=== PATIENT | female | born 1955 | race Caucasian/White ===

== ENCOUNTER 2016-08-11 21:29 | Emergency (ER) | payer MEDICAID ==
[2016-08-11] MEDS ORDERED: Ondansetron 4 MG/2 ML SDV IVPUSH ONE (22:06)
[2016-08-11] MEDS ORDERED: Sodium Chloride 0.9% 1,000 ML IV SCH ×2 (22:15→23:45)
--- NOTE | 2016-08-11 22:19 | EDM.PDOC ---
ED HPI GI/ABDOMINAL - General Chief Complaint: Gastrointestinal Problem Stated Complaint: vomiting Time Seen by Provider: 08/11/16 22:15 Source: Reports: Patient, Family History Limitations: Reports: No limitations - History of Present Illness INITIAL COMMENTS - FREE TEXT/NARRATIVE: pt fixed some artichoke dip last nit with madina that had bee in the refrigerator for a fair length of time. She ate a few chips with the dip and quit. She thought something tasted strange. She did not feel well last nite and she woke up being sweaty and she started vomiting and she has vomited all day. She is feeling very shakey. She does not have severe abdomanal pain. 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 bowel resection Female Surgical History: Reports: Cystectomy Social & Family History - Family History Family Medical History: Unobtainable - Tobacco Use Smoking Status *Q: Light Tobacco Smoker Years of Tobacco use: 26 Packs/Tins Daily: 0.4 - Caffeine Use Caffeine Use: Reports: Coffee - Alcohol Use Days Per Week of Alcohol Use: 3 Number of Drinks Per Day: 3 Total Drinks Per Week: 9 - Recreational Drug Use Recreational Drug Use: No ED ROS GENERAL - Review of Systems Review Of Systems: See Below Constitutional: Reports: diaphoresis, decreased appetite HEENT: Reports: No symptoms Respiratory: Reports: No Symptoms Cardiovascular: Reports: No symptoms Endocrine: Reports: no symptoms GI/Abdominal: Reports: Nausea, Vomiting, Other ( started after eating some dip. ) : Reports: no symptoms Musculoskeletal: Reports: no symptoms Skin: Reports: no symptoms Neurological: Reports: No Symptoms ED EXAM, GI/ABD - Physical Exam Exam: See Below Text/Narrative:: Pt developed marked vomiting after becoming ill after eating some dip. She is having some rt upper abdomanal pain. Pt is very shaky on arrival. Exam Limited By: No limitations General Appearance: alert, anxious, moderate distress Ears: normal TMs Nose: normal inspection Throat/Mouth: Normal inspection Head: atraumatic Neck: normal inspection Respiratory/Chest: no respiratory distress Cardiovascular: regular rate, rhythm, tachycardia GI/Abdominal: other (mild tenderness in the rt upper abdoman. Pt has a colostomy which has had less dtrainage throughout the day. ) Course - Vital Signs Last Recorded V/S: Last Vital Signs Temp 36.7 C 08/11/16 23:45 Pulse 88 08/11/16 23:45 Resp 14 08/11/16 23:45 BP 124/76 08/11/16 23:45 Pulse Ox 99 08/11/16 23:45 - Orders/Labs/Meds Orders: Active Orders 24 hr Category Date Time Status Abdomen Ltd [US] Stat Exams 08/12/16 00:12 Taken Sodium Chloride 0.9% [Normal Saline] 1,000 ml Med 08/11/16 22:15 Active IV ASDIRECTED Sodium Chloride 0.9% [Normal Saline] 1,000 ml Med 08/11/16 23:45 Active IV ASDIRECTED Medication Orders Sodium Chloride (Normal Saline) 1,000 mls @ 999 mls/hr IV ASDIRECTED [place] Last Admin: 08/11/16 22:10 Dose: 999 mls/hr Sodium Chloride (Normal Saline) 1,000 mls @ 999 mls/hr IV ASDIRECTED [place] Last Admin: 08/11/16 23:38 Dose: 999 mls/hr Labs: Laboratory Tests 08/11/16 08/11/16 08/11/16 Range/Units 22:06 22:06 23:19 WBC 10.5 (4.5-11.0) K/uL RBC 3.84 (3.30-5.50) M/uL Hgb 13.4 (12.0-15.0) g/dL Hct 39.3 (36.0-48.0) % MCV 102 H (80-98) fL MCH 35 H (27-31) pg MCHC 34 (32-36) % Plt Count 234 (150-400) K/uL Neut % (Auto) 77 H (36-66) % Lymph % (Auto) 12 L (24-44) % [place] % (Auto) 11 H (2-6) % Eos % (Auto) 0 L (2-4) % Baso % (Auto) 0 (0-1) % Sodium 139 L (140-148) mmol/L Potassium 4.5 (3.6-5.2) mmol/L Chloride 95 L (100-108) mmol/L Carbon Dioxide 18 L (21-32) mmol/L Anion Gap 30.5 H (5.0-14.0) mmol/L BUN 20 H (7-18) mg/dL Creatinine 1.0 (0.6-1.0) mg/dL Est Cr Clr Drug Dosing 41.98 mL/min Estimated GFR (MDRD) 57 L (>60) Glucose 83 (74-106) mg/dL Calcium 8.6 (8.5-10.1) mg/dL Total Bilirubin 1.5 H (0.2-1.0) mg/dL AST 109 H (15-37) U/L ALT 41 (12-78) U/L Alkaline Phosphatase 150 H (46-116) U/L C-Reactive Protein 0.15 (0.0-0.3) mg/dL Total Protein 7.7 (6.4-8.2) g/dL Albumin 3.8 (3.4-5.0) g/dL Globulin 3.9 H (2.3-3.5) g/dL Albumin/Globulin Ratio 1.0 L (1.2-2.2) Amylase 55 (25-115) U/L Lipase 149 (73-393) U/L Urine Color Urine Appearance Urine pH (4.5-8.0) Ur Specific [place] (1.008-1.030) Urine Protein (NEGATIVE) mg/dL Urine Glucose (UA) (NEGATIVE) mg/dL Urine Ketones (NEGATIVE) mg/dL Urine Occult Blood (NEGATIVE) Urine Nitrite (NEGATIVE) Urine Bilirubin (NEGATIVE) Urine Urobilinogen (NORMAL) mg/dL Ur Leukocyte Esterase (NEGATIVE) Urine RBC (0-5) Urine WBC (0-5) Ur Epithelial Cells Amorphous Sediment Urine Bacteria Urine Mucus 08/12/16 Range/Units 01:03 WBC (4.5-11.0) K/uL RBC (3.30-5.50) M/uL Hgb (12.0-15.0) g/dL Hct (36.0-48.0) % MCV (80-98) fL MCH (27-31) pg MCHC (32-36) % Plt Count (150-400) K/uL Neut % (Auto) (36-66) % Lymph % (Auto) (24-44) % [place] % (Auto) (2-6) % Eos % (Auto) (2-4) % Baso % (Auto) (0-1) % Sodium (140-148) mmol/L Potassium (3.6-5.2) mmol/L Chloride (100-108) mmol/L Carbon Dioxide (21-32) mmol/L Anion Gap (5.0-14.0) mmol/L BUN (7-18) mg/dL Creatinine (0.6-1.0) mg/dL Est Cr Clr Drug Dosing mL/min Estimated GFR (MDRD) (>60) Glucose (74-106) mg/dL Calcium (8.5-10.1) mg/dL Total Bilirubin (0.2-1.0) mg/dL AST (15-37) U/L ALT (12-78) U/L Alkaline Phosphatase (46-116) U/L C-Reactive Protein (0.0-0.3) mg/dL Total Protein (6.4-8.2) g/dL Albumin (3.4-5.0) g/dL Globulin (2.3-3.5) g/dL Albumin/Globulin Ratio (1.2-2.2) Amylase (25-115) U/L Lipase (73-393) U/L Urine Color Yellow Urine Appearance Clear Urine pH 5.0 (4.5-8.0) Ur Specific [place] 1.025 (1.008-1.030) Urine Protein Negative (NEGATIVE) mg/dL Urine Glucose (UA) Normal (NEGATIVE) mg/dL Urine Ketones 150 H (NEGATIVE) mg/dL Urine Occult Blood Negative (NEGATIVE) Urine Nitrite Negative (NEGATIVE) Urine Bilirubin Negative (NEGATIVE) Urine Urobilinogen Normal (NORMAL) mg/dL Ur Leukocyte Esterase Negative (NEGATIVE) Urine RBC 0-5 (0-5) Urine WBC 0-5 (0-5) Ur Epithelial Cells Moderate Amorphous Sediment Not seen Urine Bacteria Few Urine Mucus Not seen Meds: Medications Generic Name Dose Route Start Last Admin Trade Name Freq PRN Reason Stop Dose Admin Sodium Chloride 1,000 mls @ 999 mls/hr 08/11/16 22:15 08/11/16 22:10 Normal Saline IV 999 mls/hr ASDIRECTED [place] Administration Sodium Chloride 1,000 mls @ 999 mls/hr 08/11/16 23:45 08/11/16 23:38 Normal Saline IV 999 mls/hr ASDIRECTED [place] Administration Discontinued Medications Generic Name Dose Route Start Last Admin Trade Name Freq PRN Reason Stop Dose Admin Ondansetron HCl 4 mg 08/11/16 22:06 08/11/16 22:12 Zofran IVPUSH 08/11/16 22:07 4 mg ONETIME ONE Administration - Re-Assessments/Exams Free Text/Narrative Re-Assessment/Exam: 08/12/16 01:03 pt had a US on the gb because of the vomiting and up liver enzymes. This proved to be normal. She has had 2 liters of fluid. Will try fluids and ice chips at this point. 08/12/16 01:07 pt is still very shakey when she gets up. I discussed with her about staying at the hosp over nite for further hydration. She was not interested in doing that. Departure - Departure Time of Disposition: 01:47 Disposition: Home, Self-Care 01 Condition: fair Clinical Impression: Dehydration, Elevated liver enzymes Referrals: Ezio Salgado MD [Primary Care Provider] - Forms: ED Department Discharge Care Plan Goals: clear liquid diet, zoforan 4mg q6h prn for nausea. rtc if further problems. - My Orders Last 24 Hours: My Active Orders 08/11/16 22:15 Sodium Chloride 0.9% [Normal Saline] 1,000 ml IV ASDIRECTED 08/11/16 23:45 Sodium Chloride 0.9% [Normal Saline] 1,000 ml IV ASDIRECTED 08/12/16 00:12 Abdomen Ltd [US] Stat - Assessment/Plan Last 24 Hours: My Active Orders 08/11/16 22:15 Sodium Chloride 0.9% [Normal Saline] 1,000 ml IV ASDIRECTED 08/11/16 23:45 Sodium Chloride 0.9% [Normal Saline] 1,000 ml IV ASDIRECTED 08/12/16 00:12 Abdomen Ltd [US] Stat
[2016-08-12 00:14] VITALS: BP 124/76
== END 2016-08-12 02:13 | disposition home or self-care (01) ==
LOC: JP.ED 21:29
DX: E86.0 Dehydration (principal); R74.8 Abnormal levels of other serum enzymes; F17.210 Nicotine dependence, cigarettes, uncomplicated; Z88.0 Allergy status to penicillin; Z88.1 Allergy status to other antibiotic agents
CPT/HCPCS: 36415; 76705; 80053; 81001; 82150; 83690; 85025; 86140; 96361; 96374; 99284; J2405; J7040

== ENCOUNTER 2020-01-03 16:31 | Emergency (ER) | payer MEDICAID ==
[2020-01-03 16:45] VITALS: BP 148/80; PULSE 100
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
[2020-01-03] MEDS ORDERED: Bacitracin Oint 1 GM U/D Packet TOP ONE (17:33)
[2020-01-03] MEDS ORDERED: Lidocaine 1% with EPINEPHrine 1:100,000 50 ML MDV INFILT ONE (17:34)
--- NOTE | 2020-01-06 09:22 | CR ---
Tibia Fibula Rt CLINICAL HISTORY: Laceration FINDINGS: Two views show no evidence of fracture or bone destruction. No soft tissue abnormality is seen. No foreign body seen Impression: Negative
== END 2020-01-03 19:07 | disposition home or self-care (01) ==
LOC: JP.ED 16:31
DX: S81.811A Laceration without foreign body, right lower leg, initial encounter (principal); Z88.1 Allergy status to other antibiotic agents; Z88.0 Allergy status to penicillin; W28.XXXA Contact with powered lawn mower, initial encounter
CPT/HCPCS: 12002; 73590-26-RT; 73590-RT; 99283-25

== ENCOUNTER 2020-08-08 11:27 | Emergency (ER) | payer MEDICAID ==
[2020-08-08 11:45] VITALS: BP 144/85; PULSE 98
[2020-08-08] MEDS ORDERED: Ketorolac 30 MG/ML SDV IM ONE (12:19)
--- NOTE | 2020-08-08 12:21 | EDM.PDOC ---
ED HPI GENERAL MEDICAL PROBLEM - General Chief Complaint: Lower Extremity Injury/Pain Stated Complaint: RIGHT SIDE PAIN, BRUISED, SORE SEEPING Time Seen by Provider: 08/08/20 12:12 Source of Information: Reports: Patient, RN Notes Reviewed History Limitations: Reports: No Limitations - History of Present Illness INITIAL COMMENTS - FREE TEXT/NARRATIVE: 64-year-old female presents emergency department day complaint of pain in her right hip she may have injured herself yesterday when she was doing some lifting she also has an area of concern where she has had some yellow drainage right over the greater trochanter she has not had any fevers pain does shoot down her leg otherwise no nausea or vomiting Right Hip Pain Score (Numeric/FACES): 10 - Related Data Allergies Allergy/AdvReac Type Severity Reaction Status Date / Time Penicillins Allergy Severe Respiratory Verified 08/08/20 11:48 Distress levofloxacin [From Levaquin] AdvReac Nausea and Verified 08/08/20 11:48 Vomiting Home Meds: Home Meds Alendronate Sodium 70 mg PO ASDIRECTED 08/08/20 [History] Magnesium Oxide [Magnesium] 400 mg PO DAILY 08/08/20 [History] Ofloxacin 1 drop TOP Q4HR 08/08/20 [History] Past Medical History Gastrointestinal History: Reports: 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 bowel resection Female Surgical History: Reports: Cystectomy Other Musculoskeletal Surgeries/Procedures:: pin in hip and screw in femur Social & Family History - Family History Family Medical History: Unobtainable - Tobacco Use Tobacco Use Status *Q: Current Every Day Tobacco User Years of Tobacco use: 23 Packs/Tins Daily: 1 - Caffeine Use Caffeine Use: Reports: Coffee - Recreational Drug Use Recreational Drug Type: Reports: Marijuana/Hashish Review of Systems - Review of Systems Review Of Systems: See Below Respiratory: Reports: No Symptoms Cardiovascular: Reports: No Symptoms GI/Abdominal: Reports: No Symptoms Musculoskeletal: Reports: Joint Pain (Hip pain) Skin: Reports: Wound, Other (Drainage) ED EXAM, GENERAL - Physical Exam Exam: See Below Free Text/Narrative:: Examination of the right hip I do appreciate a small ulcer there is an eschar over this there is no drainage at this time it is not warm to the touch it is very tender to the touch does not tolerate much of exam for flexion or extension there is no tenderness to the pelvis on palpation Exam Limited By: No Limitations General Appearance: Alert, WD/WN, No Apparent Distress Respiratory/Chest: No Respiratory Distress Course - Vital Signs Last Recorded V/S: Last Vital Signs Temp 97.6 F 08/08/20 11:46 Pulse 98 08/08/20 11:46 Resp 18 08/08/20 11:46 BP 144/85 H 08/08/20 11:46 Pulse Ox 99 08/08/20 11:46 - Orders/Labs/Meds Orders: Active Orders 24 hr Category Date Time Status Hip Min 2V or 3V w Pelvis Rt [CR] Stat Exams 08/08/20 12:19 Taken Labs: Laboratory Tests 08/08/20 08/08/20 08/08/20 Range/Units 12:31 12:31 12:31 WBC 10.3 (4.5-11.0) K/uL RBC 4.00 (3.30-5.50) M/uL Hgb 12.5 (12.0-15.0) g/dL Hct 37.7 (36.0-48.0) % MCV 94 (80-98) fL MCH 31 (27-31) pg MCHC 33 (32-36) % Plt Count 178 (150-400) K/uL Neut % (Auto) 72 H (36-66) % Lymph % (Auto) 16 L (24-44) % [place] % (Auto) 11 H (2-6) % Eos % (Auto) 1 L (2-4) % Baso % (Auto) 0 (0-1) % Sodium 136 L (140-148) mmol/L Potassium 4.0 (3.6-5.2) mmol/L Chloride 98 L (100-108) mmol/L Carbon Dioxide 26 (21-32) mmol/L Anion Gap 16.0 H (5.0-14.0) mmol/L BUN 9 D (7-18) mg/dL Creatinine 0.8 (0.6-1.0) mg/dL Est Cr Clr Drug Dosing 53.60 mL/min Estimated GFR (MDRD) > 60 (>60) Glucose 105 (74-106) mg/dL Lactic Acid 0.8 (0.4-2.0) mmol/L Calcium 9.1 (8.5-10.1) mg/dL C-Reactive Protein 11.82 H (0.0-0.3) mg/dL Meds: Medications Discontinued Medications Generic Name Dose Route Start Last Admin Trade Name Kevinq PRN Reason Stop Dose Admin Ketorolac Tromethamine 30 mg 08/08/20 12:19 08/08/20 12:43 Ketorolac 30 Mg/Ml Sdv IM 08/08/20 12:20 30 mg ONETIME ONE Administration Departure - Departure Time of Disposition: 13:17 Disposition: Home, Self-Care 01 Condition: Fair Clinical Impression: Contusion of right hip Qualifiers: Encounter type: initial encounter Qualified Code(s): S70.01XA - Contusion of right hip, initial encounter - Discharge Information Instructions: Hip Pain, Contusion, [id number] Referrals: Marissa Grimaldo MD [Primary Care Provider] - Forms: ED Department Discharge Additional Instructions: Continue to use the ketorolac as needed for pain control in combination with Tylenol, please followup with your primary care provider in 2-3 days if not better, please call return to the emergency department with worsening of symptoms. Sepsis Event Note (ED) - Evaluation Sepsis Screening Result: No Definite Risk - Focused Exam Vital Signs: Vital Signs Temp Pulse Resp BP Pulse Ox 08/08/20 11:46 97.6 F 98 18 144/85 H 99 08/08/20 11:44 97.6 F 98 18 144/85 H 99 - My Orders Last 24 Hours: My Active Orders 08/08/20 12:19 Hip Min 2V or 3V w Pelvis Rt [CR] Stat - Assessment/Plan Last 24 Hours: My Active Orders 08/08/20 12:19 Hip Min 2V or 3V w Pelvis Rt [CR] Stat Plan: Assessment Acuity = acute Site and laterality = contusion right hip Etiology = secondary to lifting injury Manifestations = none Location of injury = Home Lab values = CBC CMP unremarkable lactic acid within normal limits 0.8 CRP elevated 11.8 consistent with inflammatory process, x-ray of the hip, I did review films myself I cannot appreciate any acute process, the official read from radiology is pending Plan She had good improvement with the Toradol provided she was able to ambulate around the room without her walker plan is to discharge home with ketorolac 10 mg 1 tab p.o. 3 times daily total #20 she will follow-up with her primary care or orthopedic depending on her symptomology in 2 to 3 days if not better This note was dictated using [employer] voice recognition software please call with any questions on syntax or grammar.
--- NOTE | 2020-08-10 09:28 | CR ---
Hip Min 2V or 3V w Pelvis Rt CLINICAL HISTORY: Pain FINDINGS: Patient has had previous fracture of the right proximal femur. The there is joint space narrowing in both hips. No acute fracture or dislocation seen. IMPRESSION: Previous open reduction of a right femoral fracture. There appears to be some intra-articular air in the right hip on the lateral view. This could easily be some superimposition Osteoarthritis in both hips No acute fracture
== END 2020-08-08 13:33 | disposition home or self-care (01) ==
LOC: JP.ED 11:27
DX: S70.01XA Contusion of right hip, initial encounter (principal); Z88.0 Allergy status to penicillin; Z88.1 Allergy status to other antibiotic agents; Z72.0 Tobacco use; X58.XXXA Exposure to other specified factors, initial encounter
CPT/HCPCS: 36415; 73502; 80048; 83605; 85025; 86140; 96372; 99283; J1885

== ENCOUNTER 2024-06-23 20:08 | Inpatient (IN) | payer MEDICAID, MEDICARE ==
[2024-06-23 20:29] LABS: BILIRUBIN,URINE NEGATIVE (NEGATIVE); COLOR,URINE YELLOW (YELLOW); GLUCOSE,URINE NEGATIVE (NEGATIVE); KETONES,URINE TRACE mg/dL (NEGATIVE); LEUKOCYTE ESTERASE,URINE NEGATIVE (NEGATIVE); NITRITE,URINE POSITIVE (NEGATIVE); OCCULT BLOOD,URINE TRACE-LYSED (NEGATIVE); PH,URINE 5.5 (5.0-8.0); PROTEIN,URINE NEGATIVE (NEGATIVE); UROBILINOGEN,URINE 0.2 EU/dL (0.2-1.0)
[2024-06-23 20:39] LABS: AMORPHOUS SEDIMENT,URINE NOT SEEN; APPEARANCE,URINE SLIGHTLY CLOUDY (CLEAR); BACTERIA,URINE MODERATE; EPITHELIAL CELLS,URINE RARE; MUCUS,URINE NOT SEEN; RBC,URINE 0-5 (0-5); WBC,URINE 0-5 (0-5)
[2024-06-23 20:40] LABS: AMPHETAMINES SCREEN, URINE NEGATIVE (NEGATIVE); BARBITURATE SCREEN,URINE NEGATIVE (NEGATIVE); BENZODIAZEPINES SCREEN,URINE NEGATIVE (NEGATIVE); METHADONE SCREEN, URINE NEGATIVE (NEGATIVE); METHAMPHETAMINES SCREEN, URINE NEGATIVE (NEGATIVE); OXYCODONE SCREEN,URINE NEGATIVE (NEGATIVE); PROPOXYPHENE SCREEN,URINE NEGATIVE (NEGATIVE); THC SCREEN,URINE 50 NG/ML NEGATIVE (NEGATIVE)
[2024-06-23 21:39] LABS: BASOPHILS PERCENT AUTO 0.3 % (0.1-1.3); EOSINOPHILS ABSOLUTE AUTO 0.11 K/uL (0.00-0.40); EOSINOPHILS PERCENT AUTO 2.8 % (0.0-5.4); HEMATOCRIT 36.5 % (34.3-46.0); HEMOGLOBIN 12.2 g/dL (11.2-15.5); IMMATURE GRAN PERCENT AUTO 0.3 % (0.0-0.7); LYMPHOCYTES PERCENT AUTO 38.9 % (11.4-47.7); MEAN CORPUSCULAR HEMOGLOBIN 30.7 pg (31.6-35.5); MEAN CORPUSCULAR HGB CONC 33.4 g/dL (31.6-35.5); MEAN CORPUSCULAR VOLUME 91.7 fL (81.4-99.0); MONOCYTES ABSOLUTE AUTO 0.41 K/uL (0.20-0.90); MONOCYTES PERCENT AUTO 10.6 % (3.3-12.6); NEUTROPHILS ABSOLUTE AUTO 1.82 K/uL (1.0-7.6); NEUTROPHILS PERCENT AUTO 47.1 % (40.0-78.1); PLATELET COUNT,PLT 150 K/uL (130-375); RED BLOOD CELL COUNT 3.98 M/uL (3.77-5.24); WHITE BLOOD CELL COUNT,WBC 3.9 K/uL (3.2-11.0)
[2024-06-23 22:00] LABS: A/G RATIO 1.2 (1.2-2.2); ALANINE AMINOTRANSFERASE,ALT 18 U/L (12-78); ALBUMIN 3.8 g/dL (3.4-5.0); ALKALINE PHOSPHATASE 71 U/L (46-116); ASPARTATE AMNIOTRANSFERASE,AST 30 U/L (15-37); BILIRUBIN TOTAL 0.9 mg/dL (0.2-1.0); BLOOD UREA NITROGEN,BUN 13 mg/dL (7-18); CALCIUM 9.1 mg/dL (8.5-10.1); CARBON DIOXIDE,CO2 26 mmol/L (21-32); CHLORIDE,CL 99 mmol/L (100-108); CREATININE 0.8 mg/dL (0.6-1.0); EST CRCL DRUG DOSING (CG) 50.82 mL/min; ESTIMATED GFR 81 mL/min (>60); GLUCOSE RANDOM 94 mg/dL (74-106); POTASSIUM,K 3.9 mmol/L (3.6-5.2); PROTEIN TOTAL,TP 7.1 g/dL (6.4-8.2); SODIUM,NA 136 mmol/L (140-148)
[2024-06-23 22:05] LABS: LACTIC ACID 0.7 mmol/L (0.4-2.0)
[2024-06-23 22:10] LABS: ANION GAP 14.9 mmol/L (5.0-14.0)
[2024-06-23 22:15] LABS: BASOPHILS ABSOLUTE AUTO 0.01 K/uL (0.00-0.10); IMMATURE GRAN ABSOLUTE AUTO 0.01 K/uL (0.00-0.23)
[2024-06-23] MEDS: Nitrofurantoin Monohydrate/Macrocrystalline 100 MG Cap PO SCH (23:55)
[2024-06-23] MEDS: Sodium Chloride 0.9% 10 ML Syringe FLUSH ONE (23:56)
[2024-06-24] MEDS: Iopamidol 755 Mg/ML 100 ML Bottle IV SCH (00:11)
[2024-06-24] MEDS: Sodium Chloride 0.9% 100 ML IV SCH (00:12)
[2024-06-24] MEDS: Thiamine 100 MG Tab PO ONE (01:49)
[2024-06-24] MEDS ORDERED: Nitrofurantoin Monohydrate/Macrocrystalline 100 MG Cap PO SCH (09:00)
[2024-06-24] MEDS ORDERED: Sodium Chloride 0.9% 10 ML Syringe FLUSH PRN ×2 (12:39→15:44)
[2024-06-24] MEDS: Levofloxacin/Dextrose 5%-Water 500 MG in Premix Bag 1 BAG IV ONE (13:09)
[2024-06-24] MEDS ORDERED: Gabapentin 400 MG Cap PO SCH (14:00)
[2024-06-24] MEDS: Ondansetron 4 MG/2 ML SDV IVPUSH ONE (14:20)
[2024-06-24] MEDS ORDERED: Polyethylene Glycol 3350 Powder 17 GM Packet PO PRN (15:44)
[2024-06-24] MEDS ORDERED: Ondansetron 4 MG/2 ML SDV IV PRN (15:44)
[2024-06-24 16:01] LABS: CORONAVIRUS COVID-19 NAA NEGATIVE (NEGATIVE); INFLUENZA A NAA POSITIVE (NEGATIVE); INFLUENZA B NAA NEGATIVE (NEGATIVE); RESPIRATORY SYNCYTIAL VIR NAA NEGATIVE (NEGATIVE)
[2024-06-24] MEDS: Thiamine 500 MG in Sodium Chloride 0.9% 100 ML IV SCH (16:04)
[2024-06-24] MEDS: Multivitamins with Iron Tab.Chew CHEW SCH (17:25)
[2024-06-24] MEDS: Diclofenac Sodium 1% Gel 100 GM Tube TOP SCH (17:26)
[2024-06-24] MEDS: Gabapentin 400 MG Cap PO SCH (17:27)
[2024-06-24] MEDS: Folic Acid 1 MG Tab PO SCH (17:27)
[2024-06-24] MEDS: Enoxaparin 40 MG/0.4 ML Syringe SUBCUT SCH (17:28)
[2024-06-24] MEDS: Sodium Chloride 0.9% 1,000 ML IV SCH (17:57)
[2024-06-24] MEDS: LORazepam 1 MG Tab PO PRN (20:31)
[2024-06-24] MEDS: Acetaminophen 325 MG Tab PO PRN (20:31)
[2024-06-25] MEDS: Norepinephrine Bit/D5W Premix 4 MG in Premix Bag 1 BAG IV SCH (02:43)
[2024-06-25] MEDS: Norepinephrine Bit/D5W Premix 250 ML ONE (02:45)
[2024-06-25 05:47] LABS: HEMATOCRIT 33.1 % (34.3-46.0); MEAN CORPUSCULAR HEMOGLOBIN 30.7 pg (31.6-35.5); MEAN CORPUSCULAR HGB CONC 33.2 g/dL (31.6-35.5); MEAN CORPUSCULAR VOLUME 92.5 fL (81.4-99.0); RED BLOOD CELL COUNT 3.58 M/uL (3.77-5.24); WHITE BLOOD CELL COUNT,WBC 3.9 K/uL (3.2-11.0)
[2024-06-25 05:58] LABS: CALCIUM 8.8 mg/dL (8.5-10.1); CREATININE 0.8 mg/dL (0.6-1.0); EST CRCL DRUG DOSING (CG) 48.81 mL/min; MAGNESIUM 1.8 mg/dL (1.8-2.4); POTASSIUM,K 3.8 mmol/L (3.6-5.2)
[2024-06-25 06:00] LABS: ANION GAP 9.8 mmol/L (5.0-14.0)
[2024-06-25] MEDS: Aspirin 325 MG Tab.EC PO SCH (08:59)
[2024-06-25] MEDS: Magnesium Oxide 400 MG Tab PO SCH (08:59)
[2024-06-25] MEDS: Levofloxacin 250 MG Tab PO SCH (11:34)
[2024-06-25] MEDS ORDERED: Levofloxacin/Dextrose 5%-Water 500 MG in Premix Bag 1 BAG IV SCH (13:00)
[2024-06-25] MEDS: Gabapentin 400 MG Cap PO SCH (13:29)
[2024-06-25] MEDS: Nicotine 21 MG/24 Hr Patch TRDERM SCH (21:44)
[2024-06-26] MEDS: Gabapentin 300 MG Cap PO SCH (14:21)
[2024-06-27] MEDS: Lisinopril 5 MG Tab PO SCH (08:34)
[2024-06-27] MEDS: Thiamine 250 MG in Sodium Chloride 0.9% 100 ML IV SCH (09:58)
[2024-06-27] MEDS ORDERED: Haloperidol 1 MG Tab PO PRN (16:17)
[2024-06-27] MEDS ORDERED: Divalproex Sodium Delayed-Release 250 MG Tab.CR PO SCH (17:00)
[2024-06-27] MEDS: Divalproex Sodium Delayed-Release 125 MG Cap.Sprink PO SCH (17:16)
[2024-06-27] MEDS: Melatonin 3 MG Tab PO SCH (21:22)
[2024-06-28 10:08] VITALS: BP 137/81; PULSE 91
== END 2024-06-28 10:15 | DRG 690 ==
LOC: JP.ED 20:08 → JP.MS 06-24 15:10 → JP.ICU 06-24 16:07 → JP.MS 06-26 11:00
PROVIDERS: ADMIT Hospitalist; ATTEND Hospitalist
DX: R41.0 Disorientation, unspecified (principal); N39.0 Urinary tract infection, site not specified; E51.2 Wernicke's encephalopathy; F10.239 Alcohol dependence with withdrawal, unspecified; Z88.8 Allergy status to other drugs, medicaments and biological substances; J10.1 Influenza due to other identified influenza virus with other respiratory manifestations; G31.2 Degeneration of nervous system due to alcohol; F17.210 Nicotine dependence, cigarettes, uncomplicated; F12.90 Cannabis use, unspecified, uncomplicated; F03.90 Unspecified dementia, unspecified severity, without behavioral disturbance, psychotic disturbance, mood disturbance, and anxiety; E78.00 Pure hypercholesterolemia, unspecified; F32.A Depression, unspecified; E83.42 Hypomagnesemia; Z79.82 Long term (current) use of aspirin; Z88.0 Allergy status to penicillin; Z88.1 Allergy status to other antibiotic agents; Z79.899 Other long term (current) drug therapy; Z79.1 Long term (current) use of non-steroidal anti-inflammatories (NSAID); Z86.19 Personal history of other infectious and parasitic diseases; Z87.81 Personal history of (healed) traumatic fracture; Z98.890 Other specified postprocedural states
CPT/HCPCS: 0241U; 36415; 70450; 70496; 70498; 71046; 71046-26; 80048; 80053; 80305-QW; 80307; 81001; 82947; 83605; 83735; 85025; 85027; 87086; 87088; 87186; 93005; 93010; 96125-GO; 96365; 97162-GP; 97165-GO; 97530-GP; 99223; 99232; 99233; 99238; 99285; 99285-25; A9270-GY; J1650; J1956; J3411; J7030; Q9967